=== PATIENT | female | born 1975 | race Caucasian/White ===

== ENCOUNTER 2019-03-08 01:26 | Outpatient (CLI) | payer MEDICAID, SELFPAY ==
[2019-03-08 08:54] LABS: ALT 37 U/L (12-78); AST 29 U/L (15-37); Albumin 3.5 g/dL (3.4-5.0); Alkaline Phosphatase 145 U/L (46-116); Anion Gap 8.5 mmol/L (3-11); BUN 11 mg/dL (7-18); Bilirubin, Total 0.5 mg/dL (0.2-1.0); CO2 28.5 mmol/L (21.0-32.0); CREATININE 0.68 mg/dL (0.55-1.02); Calcium 8.7 mg/dL (8.5-10.1); Chloride 106 mmol/L (98-107); Cholesterol 152 mg/dL (50-200); Glucose 88 mg/dL (70-100); HDL Cholesterol 50 mg/dL (40-60); LDL CHOLESTEROL 93 mg/dL (<100); Potassium 3.9 mmol/L (3.5-5.1); Sodium 143 mmol/L (136-145); TSH (W/Ref FT4) 1.31 uIU/mL (0.358-3.74); Total Protein 6.8 g/dL (6.4-8.2); Triglyceride 60 mg/dL (30-150)
== END 2019-03-08 01:46 ==
DX: E66.9 Obesity, unspecified (principal); F32.9 Major depressive disorder, single episode, unspecified; I10 Essential (primary) hypertension; M54.5 Low back pain; Z00.00 Encounter for general adult medical examination without abnormal findings
CPT/HCPCS: 36415; 80053; 80061; 83721; 84443

== ENCOUNTER 2020-03-06 01:15 | Outpatient (CLI) | payer MEDICAID, SELFPAY ==
[2020-03-06 07:59] LABS: Microalb ug/mg Crea 6.8 ug/mg Cr
[2020-03-06 08:34] LABS: ALT 36 U/L (14-59); AST 25 U/L (15-37); Albumin 3.9 g/dL (3.4-5.0); Alkaline Phosphatase 154 U/L (46-116); Anion Gap 6.2 mmol/L (3-11); BUN 16 mg/dL (7-18); Bilirubin, Total 0.5 mg/dL (0.2-1.0); CO2 31.8 mmol/L (21.0-32.0); CREATININE 0.74 mg/dL (0.55-1.02); Calcium 9.1 mg/dL (8.5-10.1); Chloride 101 mmol/L (98-107); Glucose 87 mg/dL (74-106); Potassium 3.6 mmol/L (3.5-5.1); Sodium 139 mmol/L (136-145); Total Protein 7.7 g/dL (6.4-8.2)
== END 2020-03-06 01:35 ==
DX: I10 Essential (primary) hypertension (principal)
CPT/HCPCS: 36415; 80053; 82043; 82570

== ENCOUNTER 2020-03-25 01:29 | Outpatient (CLI) | payer MEDICAID, SELFPAY ==
--- NOTE | 2020-03-25 07:15 | DI.RAD_ITS ---
EXAM: XR HIP LT COMPLETE AP PELVIS CLINICAL HISTORY: LEFT HIP PAIN,m25.552. TECHNIQUE: 2D digital imaging was performed. COMPARISON: No exams were available for comparison FINDINGS: BONES: No acute fracture is present. No bony destructive lesion is seen. There are degenerative gardner es seen at the lower lumbar spine and the sacroiliac joints. JOINTS: No dislocation present. The hip joints are well maintained. SOFT TISSUE: Normal. IMPRESSION: Unremarkable radiographs of the left hip. Degenerative changes in the lumbar spine and sacroiliac yoli nts. DATA REPOSITORY: RADIATION DOSE DELIVERED:
== END 2020-03-25 01:49 ==
DX: M25.552 Pain in left hip (principal); M53.3 Sacrococcygeal disorders, not elsewhere classified; M47.816 Spondylosis without myelopathy or radiculopathy, lumbar region
CPT/HCPCS: 73502

== ENCOUNTER 2020-09-22 10:46 | Outpatient (CLI) | payer MEDICAID, SELFPAY ==
--- NOTE | 2020-09-22 08:00 | DI.US_ITS ---
EXAM: US RENAL CLINICAL HISTORY: recurRent flank pain w/known left kidney stone. TECHNIQUE: Reeves scale, color and spectral Doppler were used. COMPARISON: CT RENAL COLIC WO CONTRAST from 09/12/2015 FINDINGS: Renal size in cm: Right: 12.3. Left: 12.1. Echogenicity: Normal. Hydronephrosis: No. Cyst or mass: No. Nephrolithiasis: No. Other findings: None. Bladder:Normal. Ureteral jets: Right: Visualized and unremarkable. Left: Visualized and unremarkable. Prevoid vol:109 cc Postvoid vol:0 cc Renal color flow: Symmetric and within normal limits. IMPRESSION: Unremarkable examination. No sonographic evidence of hydronephrosis or nephrolithiasis. DATA REPOSITORY:
== END 2020-09-22 11:06 ==
DX: R10.31 Right lower quadrant pain (principal); N20.0 Calculus of kidney
CPT/HCPCS: 76770

== ENCOUNTER 2020-09-23 01:33 | Outpatient (CLI) | payer MEDICAID, SELFPAY ==
[2020-09-23 11:23] LABS: Abs Immature Grans 0.03 10^3/uL (0.0-0.06); Absolute Basophil Count 0.03 10^3/uL (0.0-0.2); Absolute Eosinophil Count 0.19 10^3/uL (0.0-0.7); Absolute Lymphocyte Count 2.63 10^3/uL (1.2-3.4); Basophils % 0.4; Eosinophils % 2.4; HCT 41.2 % (36.0-46.0); HGB 14.8 g/dL (11.2-15.7); Immature Grans % 0.4; Lymphocytes % 33.4; MCH 31.3 pg (27.0-33.0); MCHC 35.9 % (32.0-36.0); MCV 87.1 fL (80-95); MPV 9.7 fL (8.0-11.0); Monocytes % 5.1; Neutrophils % 58.3; Nucleated RBC 0 %; Platelet Count 199 10^3/uL (130-400); RBC 4.73 10^6/uL (3.93-5.22); RDW 11.8 % (11.7-14.6); RDW-SD 37.2 fL; WBC 7.88 10^3/uL (4.4-10.8)
[2020-09-23 11:25] LABS: Bilirubin Negative (Negative); Blood Negative (Negative); Clarity Clear (Clear); Glucose Negative (Negative); Ketones Negative (Negative); Leukocyte Esterase Negative (Negative); Nitrite Negative (Negative); Specific Gravity >= 1.030 (1.005-1.025); Urobilinogen 0.2 EU/dL (Up TO 0.2); pH 5.5 (5-8)
== END 2020-09-23 01:53 ==
DX: K80.20 Calculus of gallbladder without cholecystitis without obstruction (principal); R10.9 Unspecified abdominal pain
CPT/HCPCS: 36415; 81003; 85025

== ENCOUNTER 2021-04-09 03:13 | Outpatient (CLI) | payer MEDICAID, SELFPAY ==
[2021-04-09 08:44] LABS: ALT 65 U/L (14-59); AST 40 U/L (15-37); Albumin 3.7 g/dL (3.4-5.0); Alkaline Phosphatase 131 U/L (46-116); Anion Gap 7.1 mmol/L (3-11); BUN 15 mg/dL (7-18); Bilirubin, Total 0.9 mg/dL (0.2-1.0); CO2 32.9 mmol/L (21.0-32.0); CREATININE 0.8 mg/dL (0.55-1.02); Calcium 8.9 mg/dL (8.5-10.1); Calculated LDL 98 mg/dL (<100); Chloride 103 mmol/L (98-107); Cholesterol 174 mg/dL (<200); Glucose 99 mg/dL (74-106); HDL Cholesterol 53 mg/dL (40-60); Potassium 3.2 mmol/L (3.5-5.1); Sodium 143 mmol/L (136-145); Total Protein 7.3 g/dL (6.4-8.2); Triglyceride 117 mg/dL (<150)
== END 2021-04-09 03:14 | disposition home or self-care (01) ==
LOC: LBO 03:13
DX: Z00.00 Encounter for general adult medical examination without abnormal findings (principal); E66.3 Overweight; Z13.220 Encounter for screening for lipoid disorders
CPT/HCPCS: 36415; 80053; 80061; 84443

== ENCOUNTER 2021-04-13 02:28 | Outpatient (CLI) | payer MEDICAID, SELFPAY ==
--- NOTE | 2021-04-13 07:00 | DI.RAD_ITS ---
Exam(s) XR RIBS RT W PA LAT CHEST EXAM: XR RIBS RT W PA LAT CHEST CLINICAL HISTORY: rib pain on right side,PLEURODYNIA,R07.81 TECHNIQUE: 2D digital imaging was performed. COMPARISON: CR CHEST 2 VIEWS PA,LAT from 07/31/2014 FINDINGS: MEDIASTINUM: Normal. HEART: Normal. PULMONARY VASCULATURE: Normal. LUNGS: Clear. PLEURAL SPACE: No pleural effusion or pneumothorax. BONE:Normal. There is again seen fusion of the T9 and T10 vertebral bodies which may be congenital. RIGHT RIBS: Normal. OTHER FINDINGS:Normal. IMPRESSION: 1. No acute pulmonary findings. 2. Unremarkable right ribs. DATA REPOSITORY: RADIATION DOSE DELIVERED:
== END 2021-04-13 02:48 ==
PROVIDERS: Visit Provider Nurse Practitioner Family
DX: R07.81 Pleurodynia (principal)
CPT/HCPCS: 71046; 71100

== ENCOUNTER 2021-07-02 01:48 | Outpatient (CLI) | payer MEDICAID, SELFPAY ==
--- NOTE | 2021-07-02 08:30 | DI.RAD_ITS ---
Exam(s) XR SHOULDER RT COMPLETE 2+V EXAM: XR SHOULDER RT COMPLETE 2+V CLINICAL HISTORY: contusion right shoulder this AM, S40.011A. TECHNIQUE: 2D digital imaging was performed. COMPARISON: CR LEFT SHOULDER COMPLETE from 11/26/2014 FINDINGS: No evidence of fracture nor dislocation or abnormal soft tissue calcifications. Subacromial space is not diminished. No obvious degenerative changes in the glenohumeral and AC joints. IMPRESSION: No significant radiographic findings. DATA REPOSITORY: RADIATION DOSE DELIVERED:
== END 2021-07-02 02:08 ==
DX: S40.011A Contusion of right shoulder, initial encounter (principal); X58.XXXA Exposure to other specified factors, initial encounter
CPT/HCPCS: 73030

== ENCOUNTER 2021-11-23 01:56 | Outpatient (CLI) | payer MEDICAID, SELFPAY ==
[2021-11-23 08:18] LABS: ALT 39 U/L (14-59); AST 28 U/L (15-37); Albumin 3.9 g/dL (3.4-5.0); Alkaline Phosphatase 129 U/L (46-116); Anion Gap 6.3 mmol/L (3-11); BUN 11 mg/dL (7-18); Bilirubin, Total 0.6 mg/dL (0.2-1.0); CO2 31.7 mmol/L (21.0-32.0); CREATININE 0.7 mg/dL (0.55-1.02); Chloride 101 mmol/L (98-107); Glucose 89 mg/dL (74-106); Potassium 3.6 mmol/L (3.5-5.1); Sodium 139 mmol/L (136-145); Total Protein 7.4 g/dL (6.4-8.2)
== END 2021-11-23 01:57 | disposition home or self-care (01) ==
LOC: LBO 01:56
DX: E87.6 Hypokalemia (principal); R10.9 Unspecified abdominal pain; R79.89 Other specified abnormal findings of blood chemistry
CPT/HCPCS: 36415; 80053

== ENCOUNTER 2023-01-13 02:06 | Outpatient (CLI) | payer MEDICAID, SELFPAY ==
--- NOTE | 2023-01-13 08:00 | DI.US_ITS ---
Exam(s) US SOFT TISS ABD WALL/LOW BACK EXAM: US SOFT TISS ABD WALL/LOW BACK CLINICAL HISTORY: ? lipoma right lower ribs, painful,mass rt chest wall, r22.2. TECHNIQUE: Ultrasound was performed using standard protocol. COMPARISON: No exams were available for comparison FINDINGS: Sonographic assessment utilizing grayscale and color Doppler imaging was performed and targeted to th e area of clinical concern. No focal mass or fluid collection is seen. There is no skin edema. IMPRESSION: No abnormality is identified. There is further clinical concern. Ext CT could be performed. DATA REPOSITORY:
== END 2023-01-13 02:26 ==
PROVIDERS: PCP Nurse Practitioner Family; Visit Provider Nurse Practitioner Family
DX: R22.2 Localized swelling, mass and lump, trunk (principal); R07.89 Other chest pain
CPT/HCPCS: 76705

== ENCOUNTER 2023-02-04 01:04 | Outpatient (CLI) | payer MEDICAID, SELFPAY ==
--- NOTE | 2023-02-04 07:30 | DI.CT_ITS ---
Exam(s) CT UPPER EXTREMITY RT WO EXAM: CT UPPER EXTREMITY RT WO TECHNIQUE: Imaging Protocol: Axial computed tomography images with coronal and sagittal reformatted images were created and reviewed CONTRAST MATERIAL: Noncontrast COMPARISON: CR XR SHOULDER RT COMPLETE 2+V from 07/02/2021 FINDINGS: No evidence of acute fracture or old fracture deformity. Minimal spurring at AC joint. Mild degenerative changes at the glenoid. No joint space loose bodies . Tiny bony density again noted adjacent to anterior humerus. Mild spurring anterior humerus near l renaldo tuberosity. No joint effusion visible. No muscular atrophy. Visualized portions of the right lung appear clear. Heart size appears normal.. IMPRESSION: Mild degenerative changes. No acute abnormality.. RADIATION DOSE DELIVERED: 991.17mGy.cm Total DLP 991.17mGy.cm Total DLP DATA REPOSITORY: All CT scans at this facility are submitted to the National Radiology Data Registry (NRDR) Dose Index Registry (DIR) with the [employer] ([employer]). RADIATION OPTIMIZATION: All CT scans at this facility use at least one of these dose optimization te chniques: automated exposure control; mA and/or kV adjustment per patient size (includes targeted exa ms where dose is matched to clinical indication); or iterative reconstruction.
== END 2023-02-04 01:24 ==
PROVIDERS: PCP Nurse Practitioner Family; Visit Provider Nurse Practitioner Family
DX: M79.601 Pain in right arm (principal); S40.011A Contusion of right shoulder, initial encounter; M25.811 Other specified joint disorders, right shoulder
CPT/HCPCS: 73200

== ENCOUNTER 2023-03-09 22:08 | Outpatient (REF) | payer MEDICAID, SELFPAY ==
[2023-03-09 22:54] LABS: COMMENT (LAB VIEW ONLY) 215.43 mg/dL; Microalb ug/mg Crea 4.2 ug/mg Cr
== END 2023-03-09 22:09 | disposition home or self-care (01) ==
LOC: LBN 22:08
PROVIDERS: PCP Nurse Practitioner Family; Visit Provider Nurse Practitioner Family
DX: E11.9 Type 2 diabetes mellitus without complications (principal)
CPT/HCPCS: 82043; 82570

== ENCOUNTER 2023-03-17 02:26 | Outpatient (CLI) | payer MEDICAID, SELFPAY ==
[2023-03-17 11:34] LABS: ALT 48 U/L (14-59); AST 31 U/L (15-37); Albumin 3.8 g/dL (3.4-5.0); Alkaline Phosphatase 136 U/L (46-116); Anion Gap 5.9 mmol/L (3-11); BUN 12 mg/dL (7-18); Bilirubin, Total 0.7 mg/dL (0.2-1.0); CO2 30.1 mmol/L (21.0-32.0); CREATININE 0.9 mg/dL (0.55-1.02); Calcium 9.2 mg/dL (8.5-10.1); Chloride 104 mmol/L (98-107); Estimated GFR 78.37 (mL/min/1.73m2); Glucose 86 mg/dL (74-106); Potassium 3.4 mmol/L (3.5-5.1); Sodium 140 mmol/L (136-145); Total Protein 7.8 g/dL (6.4-8.2)
== END 2023-03-17 02:27 | disposition home or self-care (01) ==
PROVIDERS: PCP Nurse Practitioner Family
DX: I10 Essential (primary) hypertension (principal); F41.8 Other specified anxiety disorders; Z00.00 Encounter for general adult medical examination without abnormal findings
CPT/HCPCS: 36415; 80053

== ENCOUNTER 2023-05-23 03:13 | Outpatient (CLI) | payer MEDICAID, SELFPAY ==
--- NOTE | 2023-05-23 10:44 | DI.RAD_ITS ---
Exam(s) XR RIBS RT W PA LAT CHEST CLINICAL HISTORY: continued pain,RT SIDED RIB, R07.81. COMPARISON: CR XR RIBS RT W PA LAT CHEST from 04/13/2021 TECHNIQUE:: PA and lateral views of the chest and 5 views of the right ribs were performed. FINDINGS: LUNGS:Clear. No pleural abnormality seen. HEART: Normal. MEDIASTINUM: Normal. BONES: No displaced rib fracture is seen. No bony destructive lesion is seen. Degenerative changes n oted in the mid to lower thoracic spine. 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 IMPRESSION: 1. Unremarkable radiographic appearance of the right ribs. 2. No acute pulmonary findings.
== END 2023-05-23 03:33 ==
PROVIDERS: PCP Nurse Practitioner Family; Visit Provider Nurse Practitioner Family
DX: R07.81 Pleurodynia (principal)
CPT/HCPCS: 71046; 71100

== ENCOUNTER → 2024-02-02 04:22 | Outpatient (CLI) | payer MEDICAID, SELFPAY ==
--- NOTE | 2024-02-02 06:00 | DI.CT_ITS ---
Exam(s) CT RENAL COLIC WO EXAM: CT RENAL COLIC WO CLINICAL HISTORY: hx of stones,FLANK PAIN, ? STONE,r10.9. TECHNIQUE: Imaging Protocol: Axial computed tomography images with coronal and sagittal reformatted images were created and reviewed. COMPARISON: CT RENAL COLIC WO CONTRAST from 09/12/2015 FINDINGS: ABDOMEN: Lung Bases: Stable parenchymal scarring is seen in the medial aspect of the right lung base. No acut e pulmonary findings are seen in the lung bases. Liver: Normal density. No measurable mass. Gallbladder and biliary tract: Status post cholecystectomy. No significant biliary ductal dilatation . Pancreas: Normal density, no abnormal calcifications or inflammatory process. Spleen: Normal. Kidneys: Normal size, contour and axis.No right nephrolithiasis. There are few small 2-3 mm nonobstr ucting stones in the left kidney. No ureterolithiasis or hydronephrosis. There are several phleboli ths which appear in the pelvis and are stable. No masses seen. Adrenal glands: No mass is seen. Lymph nodes: Within normal limits. Abdominal Aorta: Abdominal portion non-dilated. PELVIS: Bladder:Symmetric distention, no gross wall thickening. Bowel: There are few colonic diverticula but no evidence of acute diverticulitis. No evidence of bow el obstruction or bowel wall thickening. Appendix is unremarkable. Peritoneal cavity: No ascites, collection or mesenteric inflammatory response. No free air. Reproductive organs: Status post hysterectomy. Bones: Within normal limits. Soft Tissues: There is a moderate size fat containing paraumbilical hernia. IMPRESSION: Left nephrolithiasis. No obstructive uropathy. RADIATION DOSE DELIVERED: Total DLP DATA REPOSITORY: All CT scans at this facility are submitted to the National Radiology Data Registry (NRDR) Dose Index Registry (DIR) with the [employer] (ACR). RADIATION OPTIMIZATION: All CT scans at this facility use at least one of these dose optimization te chniques: automated exposure control; mA and/or kV adjustment per patient size (includes targeted exa ms where dose is matched to clinical indication); or iterative reconstruction.
== END ==
PROVIDERS: PCP Nurse Practitioner Family; Visit Provider Nurse Practitioner Family
DX: R10.32 Left lower quadrant pain (principal); N20.0 Calculus of kidney; Z87.442 Personal history of urinary calculi; Z90.49 Acquired absence of other specified parts of digestive tract
CPT/HCPCS: 74176

== ENCOUNTER 2024-05-28 11:11 | Outpatient (CLI) | payer MEDICAID, SELFPAY ==
--- NOTE | 2024-05-28 11:00 | RT.EKG_ITS ---
APPROVED REPORT Exam: Resting ECG Reason for Exam: annual Patient Location: O HR:65 bpm ECG Measurements Heart Rate 65 AXIS VT 189 P -10 QRSd 91 QRS 15 QT 397 T -8 QTc 413 Conclusion Sinus rhythm...normal P axis, V-rate 50- 99 Normal Electrocardiogram
== END 2024-05-28 11:12 | disposition home or self-care (01) ==
PROVIDERS: PCP Nurse Practitioner Family; Visit Provider Nurse Practitioner Family
DX: R07.9 Chest pain, unspecified (principal); Z00.00 Encounter for general adult medical examination without abnormal findings; R09.89 Other specified symptoms and signs involving the circulatory and respiratory systems; K20.0 Eosinophilic esophagitis; I10 Essential (primary) hypertension; F07.81 Postconcussional syndrome
CPT/HCPCS: 93010

== ENCOUNTER → 2024-05-29 09:03 | Outpatient (CLI) | payer MEDICAID, SELFPAY ==
--- NOTE | 2024-05-29 11:06 | DI.RAD_ITS ---
Exam(s) XR FOOT LT COMPLETE EXAM: XR FOOT LT COMPLETE CLINICAL HISTORY: burning pain laterally,m79.672. TECHNIQUE: 2D digital imaging was performed of the left foot. Three images were obtained. AP, obli que and lateral views were obtained. COMPARISON: No exams were available for comparison FINDINGS: BONES: No acute fracture is present. No bony destructive lesion is seen. There is a moderate size ent hesophyte at the posterior calcaneus. There is a small plantar calcaneal spur. JOINTS: No dislocation present. Mild degenerative changes are seen at the interphalangeal joints of t he toes. SOFT TISSUE: There is soft tissue swelling of the foot lateral to the 5th metatarsal bone. No radiop aque foreign bodies are present. IMPRESSION: 1. Soft tissue swelling lateral to the 5th metatarsal bone. No radiopaque foreign body or soft tissu e gas is seen. 2. Mild degenerative changes of the foot. 3. No acute fracture or dislocation. DATA REPOSITORY: RADIATION DOSE DELIVERED:
== END ==
PROVIDERS: PCP Nurse Practitioner Family; Visit Provider Nurse Practitioner Family
DX: M79.672 Pain in left foot (principal); M19.072 Primary osteoarthritis, left ankle and foot
CPT/HCPCS: 73630

== ENCOUNTER 2024-07-05 04:20 | Outpatient (CLI) | payer MEDICAID, SELFPAY ==
[2024-07-05 12:35] LABS: BUN 11 mg/dL (7-18); CREATININE 0.8 mg/dL (0.55-1.02); Calcium 9.4 mg/dL (8.5-10.1); Chloride 105 mmol/L (98-107); Estimated GFR 89.71 (mL/min/1.73m2); Glucose 88 mg/dL (74-106); Potassium 3.6 mmol/L (3.5-5.1); Sodium 139 mmol/L (136-145)
== END 2024-07-05 04:21 | disposition home or self-care (01) ==
LOC: LOS 04:20
PROVIDERS: PCP Nurse Practitioner Family; Visit Provider Nurse Practitioner Family
DX: I10 Essential (primary) hypertension (principal)
CPT/HCPCS: 36415; 80048

== ENCOUNTER 2025-02-06 12:03 | Outpatient (CLI) | payer MEDICAID, SELFPAY ==
--- NOTE | 2025-02-06 11:30 | DI.RAD_ITS ---
Exam(s) XR CHEST 2V PA LATERAL EXAM: XR CHEST 2V PA LATERAL CLINICAL HISTORY: persistent cough, R05.9 TECHNIQUE: 2D digital imaging was performed of the chest. Two images were obtained. PA and lateral views were obtained. COMPARISON: CR XR RIBS RT W PA LAT CHEST from 04/13/2021 CR XR RIBS RT W PA LAT CHEST from 05/23/[address] RENAL COLIC WO from 02/02/2024 FINDINGS: MEDIASTINUM: Normal. HEART: Normal. PULMONARY VASCULATURE: Normal. LUNGS: There is a density projected to the right of the superior mediastinum which appears represent superimposition of soft tissue and bone structures. The lungs are clear. PLEURAL SPACE: No pleural effusion or pneumothorax. BONE:Within normal limits for the patient's age. 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 OTHER FINDINGS:Normal. IMPRESSION: 1. No acute pulmonary findings. 2. Ovoid density in the right upper lung field medially. It appears represent a superimposition of s oft tissue and bone structures. An AP lordotic view should be obtained for confirmation. Unexpected findings DATA REPOSITORY: RADIATION DOSE DELIVERED:
--- NOTE | 2025-02-06 13:52 | DI.RAD_ITS ---
Exam(s) XR CHEST 1V IN DI DEPT EXAM: XR CHEST 1V IN DI DEPT CLINICAL HISTORY: AP lordotic view, R93.89-Abnl findings on DI of other specified body struct TECHNIQUE: 2D digital imaging was performed of the chest. Two images were obtained. AP lordotic vi ews views were obtained. COMPARISON: CR XR CHEST 2V PA LATERAL from 02/06/2025 FINDINGS: MEDIASTINUM: Normal. HEART: Normal. PULMONARY VASCULATURE: Normal. LUNGS: Clear. PLEURAL SPACE: No pleural effusion or pneumothorax. BONE:Within normal limits for the patient's age. OTHER FINDINGS:Normal. IMPRESSION: 1. No acute pulmonary findings. 2. The opacity seen on the initial film is secondary to overlying soft tissue and bony structures. 3. No evidence of a pulmonary nodule. DATA REPOSITORY: RADIATION DOSE DELIVERED:
== END 2025-02-06 12:23 ==
LOC: DI 12:05
PROVIDERS: PCP Nurse Practitioner Family; Visit Provider Nurse Practitioner Family
DX: R05.9 Cough, unspecified (principal); R91.8 Other nonspecific abnormal finding of lung field
CPT/HCPCS: 71045; 71046

== ENCOUNTER 2025-02-06 17:35 | Outpatient (REF) | payer MEDICAID, SELFPAY ==
[2025-02-06 18:27] LABS: Abs Immature Grans 0.02 10^3/uL (0.0-0.06); Absolute Basophil Count 0.05 10^3/uL (0.0-0.2); Absolute Eosinophil Count 0.44 10^3/uL (0.0-0.7); Absolute Lymphocyte Count 2.41 10^3/uL (1.2-3.4); Absolute Monocyte Count 0.47 10^3/uL (0.1-0.8); Absolute Neutrophil Count 4.04 10^3/uL (1.2-6.7); Basophils % 0.7 %; Eosinophils % 5.9 %; HCT 40.4 % (36.0-46.0); HGB 14.1 g/dL (11.2-15.7); Immature Grans % 0.3 %; Lymphocytes % 32.4 %; MCH 31.4 pg (27.0-33.0); MCHC 34.9 % (32.0-36.0); MCV 90 fL (80-95); MPV 10.2 fL (8.0-11.0); Monocytes % 6.3 %; Neutrophils % 54.4 %; Platelet Count 209 10^3/uL (130-400); RBC 4.49 10^6/uL (3.93-5.22); RDW 12.8 % (11.7-14.6); RDW-SD 41.1 fL; WBC 7.43 10^3/uL (4.4-10.8)
== END 2025-02-06 17:36 | disposition home or self-care (01) ==
LOC: LBN 17:35
PROVIDERS: PCP Nurse Practitioner Family; Visit Provider Nurse Practitioner Family
DX: R05.9 Cough, unspecified (principal); Z68.41 Body mass index [BMI] 40.0-44.9, adult; Z01.30 Encounter for examination of blood pressure without abnormal findings
CPT/HCPCS: 85025

== ENCOUNTER 2025-02-12 16:06 | Emergency (ER) | payer MEDICAID, SELFPAY ==
[2025-02-12] VITALS (19 sets, daily range): BP systolic 99–115; BP diastolic 62–79; PULSE 61–73; RESP 12–22; TEMP 36.3; O2SAT 93–100
--- NOTE | 2025-02-12 16:00 | RT.EKG_ITS ---
APPROVED REPORT Exam: Resting ECG Reason for Exam: Syncopal Episode Patient Location: E HR:72 bpm ECG Measurements Heart Rate 72 AXIS ID 182 P 1 QRSd 84 QRS 16 QT 365 T -14 QTc 400 Conclusion Sinus rhythm...normal P axis, V-rate 60- 99
--- NOTE | 2025-02-12 16:30 | ED.GENADUL_ITS ---
Discharge Plan Disposition Patient Disposition: Home Condition: Stable Discharge Details Clinical Impression: Contusion of left hip, Lumbar contusion, Syncope Primary Care Provider: Edmond Champagne ED Provider: Esau Mojica [place] Meds and New Rx's Prescriptions: New diazepam [Valium] 5 mg tablet 5 mg PO TID PRN (Reason: muscle spasm) Qty: 10 0RF Continued minocycline 100 mg capsule 100 mg PO DAILY PRN metoprolol succinate 50 mg tablet extended release 24 hr 50 mg PO DAILY Qty: 90 3RF losartan 50 mg tablet 50 mg PO DAILY Qty: 30 0RF budesonide-formoterol [Symbicort] 80-4.5 mcg/actuation HFA aerosol inhaler 2 puff inhalation Q12H Qty: 10.2 0RF hydrochlorothiazide 25 mg tablet 25 mg PO DAILY Qty: 90 2RF Ubrelvy 100 mg tablet 100 mg PO ONCE Qty: 14 11RF Rx Instructions: as a single dose; may repeat once in >=2 hours after first dose if needed ibuprofen 800 mg tablet See Rx Instructions .ROUTE .COMPLEX Qty: 90 4RF Dose Instruction: TAKE ONE TABLET BY MOUTH THREE TIMES A DAY NEEDED FOR PAIN Rx Instructions: TAKE ONE TABLET BY MOUTH THREE TIMES A DAY NEEDED FOR PAIN acetaminophen 500 mg tablet See Rx Instructions .ROUTE .COMPLEX Qty: 240 2RF Dose Instruction: TAKE TWO TABLETS BY MOUTH FOUR TIMES A DAY NEEDED FOR PAIN Rx Instructions: TAKE TWO TABLETS BY MOUTH FOUR TIMES A DAY NEEDED FOR PAIN ondansetron 4 mg tablet,disintegrating 4 mg PO Q6H PRN (Reason: nausea and vomiting) Qty: 30 3RF gabapentin 300 mg capsule 900 mg PO TID Qty: 810 3RF pregabalin 50 mg capsule 50 mg PO BID Qty: 60 0RF promethazine 25 mg tablet 25 mg PO Q6H PRN (Reason: nausea and vomiting) Qty: 30 0RF lorazepam 0.5 mg tablet 0.5 mg PO QHS PRN (Reason: anxiety) Qty: 14 0RF Rx Instructions: may fill monthly HPI General Mode of arrival: ambulatory . Date/Time Provider Initiated Documentation: 02/12/25 16:11 . Limitations to Documentation: no limitations . Information obtained by: patient . History of Present Illness 49 year old F presents to the emergency department with the chief complaint of lower back,left hip pain s/p fall, described as moderate, Quality is described as aching, and is localized to the back. Patient started experiencing this hour(s) (1) and it has been constant. Rest improves symptom(s), Movement worsens symptoms . Patient notes syncope. Patient did receive the following treatments prior to arrival, none Related Data Home Medications ?Medication ?Instructions ?Recorded ?Confirmed minocycline 100 mg capsule 100 mg PO DAILY PRN 11/04/22 02/12/25 ubrogepant 100 mg tablet (Ubrelvy) 100 mg PO ONCE #14 tabs 08/24/23 02/12/25 acetaminophen 500 mg tablet See Rx Instructions .Route 09/26/23 02/12/25 .COMPLEX #240 tabs ibuprofen 800 mg tablet See Rx Instructions .Route 09/26/23 02/12/25 .COMPLEX #90 tabs hydrochlorothiazide 25 mg tablet 25 mg PO DAILY #90 tabs 05/28/24 02/12/25 gabapentin 300 mg capsule 900 mg (3 x 300 mg) PO TID 10/16/24 02/12/25 headache, neck pain #810 caps ondansetron 4 mg disintegrating 4 mg PO Q6H PRN nausea and 10/16/24 02/12/25 tablet vomiting #30 tabs metoprolol succinate 50 mg 50 mg PO DAILY #90 tabs 12/12/24 02/12/25 tablet,extended release 24 hr pregabalin 50 mg capsule 50 mg PO BID #60 caps 01/01/25 02/12/25 promethazine 25 mg tablet 25 mg PO Q6H PRN nausea and 01/14/25 02/12/25 vomiting #30 tabs lorazepam 0.5 mg tablet 0.5 mg PO QHS PRN anxiety #14 tabs 01/17/25 02/12/25 budesonide-formoterol HFA 80 2 puff inhalation Q12H #10.2 grams 02/06/25 02/12/25 mcg-4.5 mcg/actuation aerosol inhaler (Symbicort) losartan 50 mg tablet 50 mg PO DAILY #30 tabs 02/06/25 02/12/25 diazepam 5 mg tablet (Valium) 5 mg PO TID PRN muscle spasm #10 02/12/25 tabs Previous Rx's ?Medication ?Instructions ?Recorded ubrogepant 100 mg tablet (Ubrelvy) 100 mg PO ONCE #14 tabs 08/24/23 acetaminophen 500 mg tablet See Rx Instructions .Route 09/26/23 .COMPLEX #240 tabs ibuprofen 800 mg tablet See Rx Instructions .Route 09/26/23 .COMPLEX #90 tabs hydrochlorothiazide 25 mg tablet 25 mg PO DAILY #90 tabs 05/28/24 gabapentin 300 mg capsule 900 mg (3 x 300 mg) PO TID 10/16/24 headache, neck pain #810 caps ondansetron 4 mg disintegrating 4 mg PO Q6H PRN nausea and 10/16/24 tablet vomiting #30 tabs metoprolol succinate 50 mg 50 mg PO DAILY #90 tabs 12/12/24 tablet,extended release 24 hr pregabalin 50 mg capsule 50 mg PO BID #60 caps 01/01/25 promethazine 25 mg tablet 25 mg PO Q6H PRN nausea and 01/14/25 vomiting #30 tabs lorazepam 0.5 mg tablet 0.5 mg PO QHS PRN anxiety #14 tabs 01/17/25 budesonide-formoterol HFA 80 2 puff inhalation Q12H #10.2 grams 02/06/25 mcg-4.5 mcg/actuation aerosol inhaler (Symbicort) losartan 50 mg tablet 50 mg PO DAILY #30 tabs 02/06/25 diazepam 5 mg tablet (Valium) 5 mg PO TID PRN muscle spasm #10 02/12/25 tabs Allergies Allergy/AdvReac Type Severity Reaction Status Date / Time amlodipine AdvReac Intermediate Swelling/Ed Verified 02/12/25 16:14 rafiq lisinopril AdvReac Intermediate Nausea Verified 02/12/25 16:14 General Stated Complaint: Orthopedic JULIO: 3 Review of Systems All systems reviewed & are unremarkable except as noted in HPI and below Constitutional Constitutional: Denies chills and Denies fever(s) Cardiovascular Cardiovascular: Denies chest pain, Denies dyspnea and Reports other (syncope) Respiratory Respiratory: Denies cough and Denies dyspnea Gastrointestinal Gastrointestinal: Denies abdominal pain, Denies nausea and Denies vomiting Musculoskeletal Musculoskeletal: Reports back pain Exam Const General: no acute distress Orientation: alert HENFL Head: normal to inspection, no palpable skull fracture and atraumatic Ears: external ears normal General nose exam: external nose normal Mouth: moist mucous membranes Eyes General: appearance normal, both eyes and all related structures Neck Neck: normal visual inspection, full ROM and tender Resp Effort & Inspection: normal respiratory effort and able to speak in complete sentences Auscultation: clear to auscultation bilaterally Cardio Jugular venous pressure: no JVD Rate: regular rate GI Palpation: soft and nontender Back/Spine/Pelvis Back: no CVA tenderness Cervical Spine: No cervical spinal tenderness Thoracic/Lumbar Spine: No thoracic spinal tenderness and lumbar spinal tenderness Skin General skin exam: no rashes or lesions noted Neuro General: patient alert and patient oriented x3 Extrem General: normal to inspection Psych Mental Status: mental status grossly normal Course Vital Signs Vital signs: Vital Signs Temperature 36.3 C L 02/12/25 16:08 Pulse 73 02/12/25 16:08 Respiratory Rate 20 02/12/25 16:08 Blood Pressure 115/79 02/12/25 16:08 Pulse Oximetry 98 02/12/25 16:08 Temperature 36.3 C L 02/12/25 16:08 Pulse 73 02/12/25 16:08 Respiratory Rate 20 02/12/25 16:08 Blood Pressure 115/79 02/12/25 16:08 Blood Pressure Position Sitting 02/12/25 16:08 Pulse Oximetry 98 02/12/25 16:08 Oxygen Delivery Method Room Air 02/12/25 16:08 Oxygen Flow Rate 0 02/12/25 16:08 Medical Decision Making 49-year-old female states she was going down some outdoor steps that had ice on them and on the second step she slipped and landed on her back and left hip. She did not hit her head but states that after she fell she was having severe pain that caused her to pass out for a few seconds. She denies any preceding symptoms to the fall such as chest pain or difficulty breathing or lightheadedness. She is able to bear weight on arrival. She has tenderness over L4 and L5 spinous processes without any palpable visible deformities, no tenderness elsewhere in the spinal column, denies any head or neck pain and has full range of motion of her neck without any tenderness. No chest pain or abdominal tenderness. She also has left lateral hip pain. I suspect contusions but will obtain a CT lumbar spine pelvis to evaluate for fractures. Given her syncope which is likely vasovagal from the pain we will check a CBC, CMP and troponins. She has no tachycardia or hypoxia no signs of DVT on exam so I doubt PE. Labs and imaging show no acute findings. Patient is stable and feels better after Valium and Toradol and has no new pain elsewhere. I suspect contusions and muscle spasms. She will follow-up with her PCP if not improving and return precautions given Differential Diagnosis Differential Diagnosis: Contusion, fracture Lab Data Lab results reviewed: Yes I reviewed the patient's lab results. ECG Data Attestation: I personally reviewed and interpreted this ECG (s) as follows: Prior ECG tracings: available for review Interpretation: Sinus rhythm, rate of 72, VA 182, no STEMI Quality:SDOH Health Related Social Needs: No Data to Display PFSH All Active Problems (Updated 02/12/25 @ 18:23 by Esau Mojica MD) Syncope (Chronic) Lumbar contusion (Acute) Contusion of left hip (Acute) Imaging abnormalities (Acute) Cough (Acute) Left foot pain (Acute) Eosinophilic esophagitis (Acute) BMI 40.0-44.9, adult (Acute) Abnormal breast exam (Acute) Rib pain on right side (Acute) Recurrent vomiting (Acute) Blurred vision (Acute) New daily persistent headache (Acute) Post concussive syndrome (Acute) Migraine headache without aura (Acute) Whiplash injury syndrome (Acute) Acute pain of right shoulder due to trauma (Acute) PTSD (post-traumatic stress disorder) (Acute) Anxiety (Chronic) Immunization counseling (Acute) Morbid obesity (Acute) Neck pain on right side (Chronic) Right arm pain (Chronic) Muscle spasms of neck (Chronic) Contusion of shoulder, right (Chronic) WORKERS COMP - ceiling tile fell on shoulder Flank pain (Acute) Hip pain, left (Chronic) Urinary incontinence (Chronic) Essential hypertension (Acute) Depression (Acute 09/04/14) with anxiety Family hx of colon cancer (Acute 12/27/13) maternal aunt Low back pain (Chronic) Migraine (Chronic) Medical History Globus sensation Headache External hemorrhoid, bleeding Arm pain, left (10/08/14) 09/20 left arm, shoulder and neck pain Kidney stone 11/14 left; IVP 12/09-narrowing right prox ureter Obesity Family hx-breast malignancy (12/27/13) maternal aunt Surgical History Status post cholecystectomy (~03/25/19) Oophrectomy, Left (03/24/17) Abdominal hysterectomy (03/24/17) Bilateral salpingectomy with oophorectomy (03/24/17) Family History Mother Diabetes Depression Hyperlipidemia Father Diabetes Essential hypertension Heart disease Hyperlipidemia Brother No problems noted. Grandfather Diabetes Grandfather Diabetes Heart disease Grandmother Diabetes Heart disease Grandmother Diabetes Heart disease Maternal Aunt Personal history of malignant neoplasm BREAST Maternal Aunt Personal history of malignant neoplasm COLON Brother No problems noted. Son No problems noted. Son No problems noted. Family History Diabetes Personal history of malignant neoplasm Heart disease Other Family hx of colon cancer Family hx-breast malignancy Social History Smoking/Tobacco Use Status: Never Second Hand Exposure: No Smoking risk assessment performed?: Yes Alcohol Intake: never Drug use: Never Substance use type: does not use Caregiver/Support person: No Household members: spouse Housing: house Communication Needs: None Do you need help understanding health information?: Never Pets and animals: Yes Pets and animals: dog(s) Do you think of yourself as: straight/heterosexual Current gender identity: female What is your relationship status?: How often do you talk on the phone with friends or family?: once per week How often do you get together with friends or relatives?: once per week How often do you attend alevism or amish services?: decline to answer Do you belong to any clubs or organized social groups?: decline to answer Panel score (0-1 are the most socially isolated patients): 1 What type of physical activity do you participate in: walking Duration: 15-30 minutes/day Frequency: 3-4 times per week Violet/Protestant: None Special violet needs: No Seatbelt use: always Drive intox or ride w/intox national dedicated truck driver: No
[2025-02-12] MEDS: diazePAM 10 MG/2 ML SYR 5 MG IVP (16:48)
[2025-02-12] MEDS: Ketorolac 15 MG/ML VIAL IVP (16:49)
[2025-02-12 17:02] LABS: Abs Immature Grans 0.07 10^3/uL (0.0-0.06); Absolute Basophil Count 0.05 10^3/uL (0.0-0.2); Absolute Eosinophil Count 0.21 10^3/uL (0.0-0.7); Absolute Lymphocyte Count 4.13 10^3/uL (1.2-3.4); Absolute Monocyte Count 0.91 10^3/uL (0.1-0.8); Absolute Neutrophil Count 6.81 10^3/uL (1.2-6.7); Basophils % 0.4 %; Eosinophils % 1.7 %; HCT 44.3 % (36.0-46.0); HGB 15.6 g/dL (11.2-15.7); Immature Grans % 0.6 %; Lymphocytes % 33.9 %; MCH 31.5 pg (27.0-33.0); MCHC 35.2 % (32.0-36.0); MCV 89 fL (80-95); MPV 9.5 fL (8.0-11.0); Monocytes % 7.5 %; Neutrophils % 55.9 %; Platelet Count 272 10^3/uL (130-400); RBC 4.96 10^6/uL (3.93-5.22); RDW 12.7 % (11.7-14.6); RDW-SD 40.9 fL; WBC 12.18 10^3/uL (4.4-10.8)
--- NOTE | 2025-02-12 17:05 | DI.CT_ITS ---
Exam(s) CT LUMBAR SPINE WO EXAM: CT LUMBAR SPINE WO CLINICAL HISTORY: pain s/p fall. TECHNIQUE: Imaging Protocol: Axial computed tomography images with coronal and sagittal reformatted images were created and reviewed. COMPARISON: No exams were available for comparison FINDINGS: Bones: No fractures or dislocations are seen. The alignment of the spine is normal including the thor acolumbar junction. There are age-appropriate degenerative changes seen in the lumbar spine. Soft tissues: There is left nephrolithiasis. No obstructive uropathy. Status post cholecystectomy. A normal appendix is present. No large disk herniations are identified. IMPRESSION: No acute fracture or subluxation in the lumbar spine. RADIATION DOSE DELIVERED: 1,967.34mGy.cm Total DLP 1,967.34mGy.cm Total DLP DATA REPOSITORY: All CT scans at this facility are submitted to the National Radiology Data Registry (NRDR) Dose Index Registry (DIR) with the [employer] ([employer]). RADIATION OPTIMIZATION: All CT scans at this facility use at least one of these dose optimization te chniques: automated exposure control; mA and/or kV adjustment per patient size (includes targeted exa ms where dose is matched to clinical indication); or iterative reconstruction.
--- NOTE | 2025-02-12 17:05 | DI.CT_ITS ---
Exam(s) CT PELVIC WO EXAM: CT PELVIC WO CLINICAL HISTORY: pain s/p fall, left sided. TECHNIQUE: Imaging Protocol: Axial computed tomography images with coronal and sagittal reformatted images were created and reviewed. COMPARISON: CT CT RENAL COLIC WO from 02/02/[address] LUMBAR SPINE WO from 02/12/2025 FINDINGS: Bones: The osseous structures and articular surfaces are intact. Bony alignment is satisfactory. N o cellulitic or osteomyelitic changes are identified. There is no evidence of joint space narrowing or cystic degeneration seen. No lytic or sclerotic lesions are identified. Soft Tissues: There is a fat containing midline anterior abdominal wall hernia. There is a normal ap pendix. IMPRESSION: No acute fracture or dislocation. RADIATION DOSE DELIVERED: 1,967.34mGy.cm Total DLP 1,967.34mGy.cmTotal DLP DATA REPOSITORY: All CT scans at this facility are submitted to the National Radiology Data Registry (NRDR) Dose Index Registry (DIR) with the [employer] ([employer]). RADIATION OPTIMIZATION: All CT scans at this facility use at least one of these dose optimization te chniques: automated exposure control; mA and/or kV adjustment per patient size (includes targeted exa ms where dose is matched to clinical indication); or iterative reconstruction.
[2025-02-12 17:14] LABS: ALT 44 U/L (14-59); AST 20 U/L (15-37); Albumin 3.7 g/dL (3.4-5.0); Alkaline Phosphatase 130 U/L (46-116); Anion Gap 9.7 mmol/L (3-11); BUN 21 mg/dL (7-18); Bilirubin, Total 0.4 mg/dL (0.2-1.0); CO2 28.3 mmol/L (21.0-32.0); CREATININE 0.8 mg/dL (0.55-1.02); Calcium 9.4 mg/dL (8.5-10.1); Chloride 103 mmol/L (98-107); Estimated GFR 89.15 (mL/min/1.73m2); Glucose 105 mg/dL (74-106); Magnesium 1.9 mg/dL (1.8-2.4); Potassium 3.7 mmol/L (3.5-5.1); Sodium 141 mmol/L (136-145); Total Protein 7.7 g/dL (6.4-8.2)
[2025-02-12 17:23] LABS: Troponin I < 4 ng/L (<or=51)
[2025-02-12 18:05] LABS: Troponin I < 4 ng/L (<or=51)
[2025-02-12] MEDS: diazePAM 5 MG TAB PO (18:41)
== END 2025-02-12 18:43 | disposition home or self-care (01) ==
PROVIDERS: Emergency Provider Emergency Medicine; PCP Nurse Practitioner Family
DX: S70.02XA Contusion of left hip, initial encounter (principal); S30.0XXA Contusion of lower back and pelvis, initial encounter; Y93.01 Activity, walking, marching and hiking; Y92.89 Other specified places as the place of occurrence of the external cause
CPT/HCPCS: 80053; 93005; 96374; 96375; 99284; 72131; 72192; 83735; 84484; 85025; 93010; J1885; J3360

== ENCOUNTER 2025-10-24 08:22 | Outpatient (CLI) | payer MEDICAID, SELFPAY ==
[2025-10-24 17:03] LABS: Vitamin D 25 Total 43 ng/mL (30-100)
[2025-10-24 17:04] LABS: TSH 1.21 uIU/mL (0.55-4.78)
[2025-10-24 17:05] LABS: ALT 28 U/L (10-49); AST 29 U/L (<34); Albumin 4.3 g/dL (3.2-5.0); Alkaline Phosphatase 138 U/L (46-116); Anion Gap 9.5 mmol/L (3-11); BUN 12 mg/dL (9-23); Bilirubin, Total 0.6 mg/dL (0.2-1.2); CO2 26.5 mmol/L (20.0-31.0); Calcium 9.2 mg/dL (8.3-10.6); Chloride 107 mmol/L (98-107); Glucose 77 mg/dL (74-106); Potassium 4.0 mmol/L (3.5-5.1); Sodium 143 mmol/L (136-145); Total Protein 7.4 g/dL (5.7-8.2)
[2025-10-24 17:42] LABS: Vitamin B12 > 2000 pg/mL (211-911)
[2025-10-24 18:00] LABS: Hemoglobin A1C 4.6 % (<5.7)
== END 2025-10-24 08:23 | disposition home or self-care (01) ==
LOC: LOS 08:23
PROVIDERS: PCP Nurse Practitioner Family; Visit Provider Family Medicine
DX: E66.813 Obesity, class 3 (principal); Z68.42 Body mass index [BMI] 45.0-49.9, adult
CPT/HCPCS: 36415; 80048; 80053; 82306; 82607; 83036; 83525; 84443